=== PATIENT | male | born 1945 | race Caucasian/White ===

== ENCOUNTER 2025-07-22 09:24 | Emergency (ER) | payer MEDICARE ==
[2025-07-22 10:09] LABS: Glucose, Urine (Dipstick) Negative (Negative); Leukocyte Negative (Negative); Protein, Urine (Dipstick) 100 mg/dL (Neg-Trace); Specific Gravity, Urine 1.025 (1.005-1.030)
[2025-07-22 10:17] LABS: Bacteria/HPF Rare-Few HPF (None Seen); CAUTI Indications for Culture Dysuria,urgency,freq; Mucous/LPF 1+ LPF (<2+); RBC/HPF None Seen HPF (0-3); Sperm/HPF 1+ HPF (None Seen); WBC/HPF 0-3 HPF (0-3)
[2025-07-22 10:18] LABS: Urine Culture Reflex No No
[2025-07-22] MEDS ORDERED: predniSONE 20 MG TAB ONE (10:54)
== END 2025-07-22 10:55 | disposition home or self-care (01) ==
LOC: BURERS 09:24
DX: J22 Unspecified acute lower respiratory infection (principal); R30.0 Dysuria; I10 Essential (primary) hypertension; E78.5 Hyperlipidemia, unspecified; Z86.73 Personal history of transient ischemic attack (TIA), and cerebral infarction without residual deficits; Z79.82 Long term (current) use of aspirin; Z79.899 Other long term (current) drug therapy
CPT/HCPCS: 71045; 81001; J7512